=== PATIENT | male | born 1960 | race Caucasian/White ===

== ENCOUNTER 2022-06-13 06:43 | Day surgery (SDC) | payer OTHER, BC, SELFPAY ==
[2022-04-26 13:32] VITALS: BMI 28.1
[2022-06-01 10:00] VITALS: BMI 28.8
--- NOTE | 2022-06-13 07:07 | P.PNAN_ITS ---
Anes - Initial Pre Proc Eval Procedure: Operation Date: 06/13/22 10:00 Proposed Procedures p Screening Colonoscopy - Sky Giles MD Date/Time: 06/13/22 07:07 Surgeon: Sky Giles MD Pre Op Diagnosis: neoplasia screening Patient Data Age: 61 Gender: M Height: 1.73 m Weight: 86 kg Allergies Allergy/AdvReac Type Severity Reaction Status Date / Time vancomycin Allergy Mild Itching/HIV Verified 06/13/22 08:55 ES/REDNESS adhesive Allergy Unknown ITCHING, Verified 06/13/22 08:55 REDNESS FROM TAPE Home Medications Medication Instructions Recorded Confirmed Type atorvastatin 10 mg tablet 10 mg PO DAILY 03/11/20 06/01/22 History sodium,potassium,mag sulfates 17.5 See Rx Instructions PO .COMPLEX 04/26/22 Rx gram-3.13 gram-1.6 gram oral soln #354 mL (Suprep Bowel Prep Kit) pantoprazole 40 mg tablet,delayed 40 mg PO QAM 06/01/22 06/01/22 History release Patient hx anesthesia problems: none Family hx anesthesia problems: none Results Review: All pre-operative results and documents have been reviewed as part of the pre- operative evaluation. [facility] Past Medical History Medical History (Updated 06/13/22 @ 09:25 by Sky Giles MD) GERD (gastroesophageal reflux disease) Surgical History Surgical History (Updated 06/13/22 @ 07:08 by Michael Reyes DO) Hx of fusion of cervical spine x2 Social History Social History (Updated 06/13/22 @ 08:55 by Michael Reyes DO) Smoking status: Former smoker Smoking end date: 05/15/95 Alcohol intake: current Substance use: never Substance use type: does not use Living arrangements: with family Spiritual care concerns: No Anes - Eval Final PreProcedure Day of Procedure 06/13/22 07:07 Patient weight: overweight Heart: regular rate and rhythm Lungs: clear to auscultation Airway: Mallampati scale class II Neurological: alert and oriented Last oral intake: >/= 8 hours ASA classification: II Emergent: no Anesthetic plan: proceed Anesthesia type and monitoring: general GIVS and standard monitoring Results Review: All pre-operative results and documents have been reviewed as part of the pre- operative evaluation. Informed Consent: The patient's anesthetic plan and its attendant risks and benefits were discussed with the patient/family/POA. Questions were solicited and answers pr ovided to the satisfaction of the patient/family/POA.
[2022-06-13 08:50] VITALS: BP 122/83; PULSE 80; RESP 20; TEMP 36.5; O2SAT 98
[2022-06-13] MEDS: LACTATED RINGERS 1,000 ML 150 ML IV CONT (09:10)
--- NOTE | 2022-06-13 09:23 | PM.HPGS ---
History of Present Illness History of Present Illness Consent: Risks, benefits, and alternatives have been discussed and questions answered. Patient agrees to proceed with procedure. Chief complaint: neoplasia screening Narrative: Reinaldo Kasper is a 61 year old male Presents for screening colonoscopy. Patient's current weight appetite and bowel movements are normal. Patient denies abdominal pain. He has had no bleeding. Family history is noncontributory. Previous colonoscopy 2014 revealed benign lymphoid aggravate histology on the polyp that was excised. Patient returns today for screening colonoscopy. Family history noncontributory Review of Systems Review of Systems: review of systems noncontributory. [facility] Past Medical History Medical History (Updated 06/13/22 @ 09:25 by Sky Giles MD) GERD (gastroesophageal reflux disease) Surgical History Surgical History (Updated 06/13/22 @ 07:08 by Michael Reyes DO) Hx of fusion of cervical spine x2 Social History Social History (Updated 06/13/22 @ 08:55 by Michael Reyes DO) Smoking status: Former smoker Smoking end date: 05/15/95 Alcohol intake: current Substance use: never Substance use type: does not use Living arrangements: with family Spiritual care concerns: No Meds Home Medications and Allergies Home Medications Medication Instructions Recorded Confirmed Type atorvastatin 10 mg tablet 10 mg PO DAILY 03/11/20 06/13/22 History sodium,potassium,mag sulfates 17.5 See Rx Instructions PO .COMPLEX 04/26/22 06/13/22 Rx gram-3.13 gram-1.6 gram oral soln #354 mL (Suprep Bowel Prep Kit) pantoprazole 40 mg tablet,delayed 40 mg PO QAM 06/01/22 06/13/22 History release Allergies Allergy/AdvReac Type Severity Reaction Status Date / Time vancomycin Allergy Mild Itching/HIV Verified 06/13/22 08:55 ES/REDNESS adhesive Allergy Unknown ITCHING, Verified 06/13/22 08:55 REDNESS FROM TAPE Vital Signs Vital Signs - 24 hr 06/13/22 08:50 Temperature 97.7 F Pulse Rate 80 Respiratory Rate 20 Blood Pressure 122/83 Pulse Oximetry 98 Oxygen Delivery Room Air Exam Narrative: Physical exam reveals patient to be alert. Vital signs stable. HEENT exam is unremarkable. Patient is anicteric. Lungs are clear to auscultation and percussion. Heart is without murmur or extra sounds. Abdomen bowel sounds are present soft nontender with no organomegaly. Digital external rectal exam is normal. Assessment and Plan Assessment and plan (1) Encounter for screening colonoscopy: Code(s): Z12.11 - Encounter for screening for malignant neoplasm of colon Status: Acute Assessment and Plan: Patient presents for screening colonoscopy. Patient's current weight appetite and bowel movements are normal. Patient appears to be at average risk for colon polyps.
[2022-06-13 10:16] VITALS: BP 112/83; PULSE 71; RESP 16; O2SAT 100
[2022-06-13 10:26] VITALS: BP 99/65; PULSE 66; RESP 16; O2SAT 100
[2022-06-13 10:36] VITALS: BP 117/81; PULSE 70; RESP 18; O2SAT 100
--- NOTE | 2022-06-13 10:36 | WPDANESPN ---
Anes - Prog Note Post-Op Date/Time: 06/13/22 10:36 Cardiovascular status: normal Respiratory status: normal Airway patency: baseline Mental status: baseline Post-Op hydration status: normal Vital Signs: Last Vital Signs Temp 36.5 C 06/13/22 08:50 Pulse 66 06/13/22 10:26 Resp 16 06/13/22 10:26 BP 99/65 L 06/13/22 10:26 Pulse Ox 100 06/13/22 10:26 O2 Del Method Room Air 06/13/22 10:26 Pain Score (VAS): 0 I/O: Intake & Output 06/12/22 06/13/22 06/13/22 23:59 07:59 15:59 Intake Total 200 Balance 200 Post-procedural complaints: none Patient Feedback: Patient satisfied with anesthetic care. Other Findings: Patient vital signs back to baseline. Patient denies nausea and vomiting. Patient's pain under control. Patient OK for discharge.
== END 2022-06-13 10:55 | disposition home or self-care (01) ==
PROVIDERS: PCP Family Medicine Sports Medicine; Visit Provider Internal Medicine Gastroenterology
PROC: 0DJD8ZZ Inspection of Lower Intestinal Tract, Via Natural or Artificial Opening Endoscopic (ICD-10-PCS; CPT 45378; principal; 2022-06-13 10:00)
DX: Z12.11 Encounter for screening for malignant neoplasm of colon (principal)
CPT/HCPCS: 45378

== ENCOUNTER 2022-06-13 08:00 | Outpatient (NON) | payer OTHER, BC, SELFPAY | END 2022-06-13 08:01 | disposition home or self-care (01) | LOC: ANHLAB 06-14 08:02 | PROVIDERS: PCP Family Medicine Sports Medicine; Visit Provider Internal Medicine Gastroenterology | DX: Z12.11 Encounter for screening for malignant neoplasm of colon (principal) | CPT/HCPCS: 88305 ==

== ENCOUNTER → 2023-05-06 10:00 | Outpatient (CLI) | payer BC, SELFPAY ==
--- NOTE | ~2023-05-06 | MR_ITS ---
EXAMINATION: MR knee RT wo con DATE: 05/06/2023 10:38 INDICATION: Medial right knee pain and swelling. TECHNIQUE: Magnetic resonance imaging (MRI) of the right knee was performed without intravenous contr ast. Sequences included axial PD-weighted FS FSE, coronal PD-weighted FSE and PD-weighted FS FSE, sag ittal PD-weighted FSE, and sagittal T2-weighted FS FSE. COMPARISON: None. FINDINGS: Medial compartment: There is an undersurface horizontal tear of body and posterior horn of medial meniscus. There is shal low partial-thickness cartilage loss of tibial condyle and femoral condyle. Lateral compartment: Lateral meniscus is normal. There is cartilage surface irregularity of femoral condyle and tibial con dyle. Patellofemoral compartment: There is shallow partial-thickness cartilage loss of patella and trochlea. Ligaments and tendons: The anterior and posterior cruciate ligaments are normal. There are changes of prior sprains of media l collateral ligament and fibular collateral ligament characterized by increased signal intensity pro ximally. There is mild patellar tendinopathy. Fluid: There is a small knee joint effusion. There is trace fluid in a Wagner's cyst. There is mild prepatell ar and superficial infrapatellar bursitis. IMPRESSION: 1. Mild tricompartmental chondrosis. 2. Tear of medial meniscus. 3. Small knee joint effusion. Reviewed, dictated and finalized at location E. [facility]
== END ==
PROVIDERS: PCP Orthopaedic Surgery; Visit Provider Orthopaedic Surgery
DX: M25.561 Pain in right knee (principal); M22.2X1 Patellofemoral disorders, right knee; S83.241A Other tear of medial meniscus, current injury, right knee, initial encounter; M25.461 Effusion, right knee
CPT/HCPCS: 73721

== ENCOUNTER 2024-05-06 09:18 | Outpatient (CLI) | payer BC, SELFPAY ==
--- NOTE | 2024-05-06 09:30 | ECG_ITS ---
Test Date: 2024-05-06 09:39:13 Measurements Intervals [place] Rate: 64 P: 62 ND: 179 QRS: 26 QRSD: 91 T: 38 QT: 353 QTc: 367 Interpretive Statements SINUS RHYTHM No previous ECG available for comparison Electronically Signed On 05-07-2024 14:52:43 [employer] by Handy Montiel M.D.
== END 2024-05-06 09:19 | disposition home or self-care (01) ==
LOC: ANHSURGERY 09:24
PROVIDERS: PCP Family Medicine; Visit Provider Orthopaedic Surgery
DX: Z01.818 Encounter for other preprocedural examination (principal); S83.206A Unspecified tear of unspecified meniscus, current injury, right knee, initial encounter; E78.5 Hyperlipidemia, unspecified; X58.XXXA Exposure to other specified factors, initial encounter
CPT/HCPCS: 93005

== ENCOUNTER 2024-05-13 00:19 | Day surgery (SDC) | payer BC, SELFPAY ==
[2024-05-01 15:40] VITALS: BMI 26.9
--- NOTE | 2024-05-01 15:41 | PC.NURSE ---
Report to the Outpatient Waiting Room, entrance under the green pavilion located off [facility], at time _0600_ on date _[id number]_. Planned Procedure Time: _0730_.? Time changes happen often and if your time is changed the preop area will call you the afternoon before. - You and your visitor will be asked to self-screen and do not enter if you have any COVID symptoms. Please call surgeon if you need to reschedule. - A mask is optional within the hospital at this time. Patients may have clear liquids (water, carbonated beverages, clear teas, apple juice) until 3 hours prior to surgery with a maximum of 20 ounces. - No food from midnight until time of surgery and no smoking. This includes no chewing gum, candy or mints. Take only the following medications with a SIP of water on the morning of surgery: ___None DO NOT STOP ANY OF YOUR OTHER PRESCRIPTION MEDICATIONS PRIOR TO SURGERY EXCEPT THE FOLLOWING Medications to discontinue per physician ____None Please no make-up, nail ukrainian, hairspray, perfume, deodorant, or body powder the day of surgery.? No jewelry (including any body piercings) or valuables the day of surgery, leave them at home.? Please take a shower or bath the night before, or the morning of, surgery with an antibacterial soap.? Wear comfortable, loose fitting clothing.? - Jewelry must be removed prior to entering the operating room.? Rings and piercings that are not removed may be cut off. - The hospital will not accept responsibility for valuables.? - Please leave all valuables, including medications, at home the day of surgery. If you are going home after surgery, a licensed chair car driver must drive you home.? - NO public transportation without another adult if you receive anesthesia. - We recommend that an adult stay with you for 24 hours following discharge. - We also recommend that you do not drive, make important decision, drink alcoholic beverages, or take any drugs that were not prescribed by your health care provider for at least 24 hours after your discharge time. Follow any additional instructions given to you from your surgeon. Telephone instructions given to __Eduardo__and asked if any additional questions and then verbalized understanding. Patient advised to call surgeon office or pre surgery nurse liaison [phone] if any additional questions.
--- NOTE | 2024-05-10 11:22 | P.HP_ITS ---
H&P: HPI History of Present Illness Date/Time: 05/10/24 11:22 Chief Complaint: Medial meniscus tear right knee Narrative: 63-year-old male presents today for arthroscopy of his right knee with partial medial meniscectomy proceed as indicated. Patient is having symptoms for about 1 year. He was diagnosed with a tear of the posterior horn the medial meniscus last April on MRI scan. He has been treating this nonsurgically over the course the last year. He had a cortisone injection in May of 2023 which helped only for couple days. He has been taking naproxen [id number] which is helped a little bit with his symptoms. He does continue to have symptoms on a daily basis. Pain is directly at the medial joint line where he feels it. He has pain with stairs or squatting. He is having no catching or locking type symptoms in the knee. Review of Systems Review of Systems: All systems reviewed & are unremarkable except as noted in HPI and below PMFSH Past Medical History Medical History GERD (gastroesophageal reflux disease) Surgical History Surgical History Hx of fusion of cervical spine x2 Social History Social History (Updated 01/26/24 @ 08:11 by Debra García [facility]) Smoking packs per day: 1.75 Smoking cigarettes per day: 35.0 Years smoked: 15 Smoking pack-years: 26.25 Smoking status: Former smoker Second hand tobacco smoke exposure: Yes Smoking end date: 05/01/96 Alcohol intake: current Substance use: never Substance use type: does not use Do You Feel Safe in your Home?: Yes Lack of Transportation: No Lack of Food: Never True Current Housing: I Have Housing Concerned About Future Housing: No Difficulty Paying Gas/Electric Bills: No Difficulty Paying for Meds: No Currently Unemployed: No Education: Associate Degree Difficulty w/ Childcare or Family Care: No Living arrangements: with family Occupation/Education: retired 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 BMI is 27.0. I cautioned her right knee is from 0-140 degrees. He has pain at the medial joint line at full flexion. Radha's testing causes pain in the same location. He has moderately severe tenderness along the posterior medial joint line. There is no effusion in the knee. Hip range of motion is full without discomfort. He has no swelling in either lower extremity. 2+ dorsalis pedis pulse in the foot. Resp: Auscultation: clear to auscultation bilaterally Cardio: Rate: regular rate Rhythm: regular rhythm Assessment and Plan Assessment and plan (1) Tear of medial meniscus of right knee: Code(s): S83.241A - Other tear of medial meniscus, current injury, right knee, initial encounter Status: Acute Assessment and Plan: 63-year-old male who has a tear of the medial meniscus. He has been having symptoms for last year without significant improvement. He has had a cortisone injection as well as anti-inflammatories. He has minimal arthritic changes in the knee. Arthroscopy of the knee was offered to the patient he would like to proceed with it. He did have arthroscopy done to the left knee approximately 4 years ago and has done well for him. Surgical procedures well as the risks complications were discussed in detail questions were answered and we will proceed. Patient will see his primary care doctor for pre-surgical clearance. He will avoid his naproxen and any other aspirin ibuprofen products 1 week prior to surgery.
[2024-05-13] VITALS (10 sets, daily range): BP systolic 94–121; BP diastolic 49–88; PULSE 53–83; RESP 10–16; TEMP 36.4; O2SAT 95–100
[2024-05-13] MEDS: LACTATED RINGERS 1,000 ML 30 ML IV CONT (06:40)
[2024-05-13] MEDS: ACETAMINOPHEN 500 MG TABLET 1000 MG PO (06:40)
[2024-05-13] MEDS: KETOROLAC 15 MG/ML VIAL (*BKC) IV PUSH (06:40)
--- NOTE | 2024-05-13 07:17 | WPDHPUPDATE1 ---
History and Physical Update Update Date/Time: 05/13/24 07:17 History and Physical has been reviewed, including an updated exam of the patient. There are NO changes in the patient's condition. Risks, benefits, and alternatives have been discussed and questions answered. Patient agrees to proceed with procedure.
--- NOTE | 2024-05-13 07:22 | WPDANESEPPF ---
Anes - Initial Pre Proc Eval Procedure: Operation Date: 05/13/24 07:30 Proposed Procedures p Right Knee Arthroscopy, Partial Medial Meniscectomy, Proceed As Indicated - Lenny Li MD Date/Time: 05/13/24 07:22 Surgeon: Lenny Li MD Pre Op Diagnosis: right knee medial meniscus tear Patient Data Age: 63 Gender: M Height: 1.73 m Weight: 80.5 kg Last Vital Signs Temp 97.5 F L 05/13/24 06:40 Pulse 53 L 05/13/24 06:40 Resp 14 05/13/24 06:40 BP 114/88 05/13/24 06:40 Pulse Ox 96 05/13/24 06:40 O2 Del Method Room Air 05/13/24 06:40 Allergies Allergy/AdvReac Type Severity Reaction Status Date / Time vancomycin Allergy Mild Itching/HIV Verified 05/13/24 07:00 ES/REDNESS adhesive Allergy Unknown ITCHING, Verified 05/13/24 07:00 REDNESS FROM TAPE Home Medications ?Medication ?Instructions ?Recorded ?Confirmed ?Type atorvastatin 10 mg tablet 10 mg PO DAILY 03/11/20 05/01/24 History pantoprazole 40 mg tablet,delayed 40 mg PO QAM 06/01/22 05/01/24 History release Patient hx anesthesia problems: none Family hx anesthesia problems: none Results Review: All pre-operative results and documents have been reviewed as part of the pre-operative evaluation. [facility] Past Medical History Medical History GERD (gastroesophageal reflux disease) Surgical History Surgical History Hx of fusion of cervical spine x2 Social History Social History (Updated 01/26/24 @ 08:11 by Debra García [facility]) Smoking packs per day: 1.75 Smoking cigarettes per day: 35.0 Years smoked: 15 Smoking pack-years: 26.25 Smoking status: Former smoker Second hand tobacco smoke exposure: Yes Smoking end date: 05/01/96 Alcohol intake: current Substance use: never Substance use type: does not use Do You Feel Safe in your Home?: Yes Lack of Transportation: No Lack of Food: Never True Current Housing: I Have Housing Concerned About Future Housing: No Difficulty Paying Gas/Electric Bills: No Difficulty Paying for Meds: No Currently Unemployed: No Education: Associate Degree Difficulty w/ Childcare or Family Care: No Living arrangements: with family Occupation/Education: retired 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 Informed Consent: The patient's anesthetic plan and its attendant risks and benefits were discussed with the patient/family/POA. Questions were solicited and answers provided to the satisfaction of the patient/family/POA.
[2024-05-13] MEDS: ceFAZolin 2 GM/D5W 50 ML 2 GM/50 ML BAG IVPB (07:30)
[2024-05-13] MEDS: LIDO 1%/EPINEPHRINE 1:100,000 20 ML VIAL 50 ML INFILTRATE (08:17)
--- NOTE | 2024-05-13 08:43 | W.PM.PROC2 ---
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 He received 2 g of Ancef preoperatively. The right knee was prepped draped usual fashion. Standard arthroscopic portals were placed and the medial compartment was inspected 1st. There was rather extensive chondromalacia in the central aspect of the medial femoral condyle which was not evident on MRI scan from 1 year ago. There is central moderate chondromalacia in the medial tibial plateau as well. The medial meniscus was intact in its superior surface still. The undersurface showed maceration and tearing with small flaps inverted under the meniscal capsular junction. Using small motorized shaver the undersurface of the meniscus was debrided removing the flipped flaps and smoothing the undersurface. A few mm of the superior surface was resected at the medial aspect of the posterior horn and posterior aspect the midbody where the meniscus was thin and a even contour of the superior leaflet is superior meniscus was left behind. I did not feel that extensive resection would be appropriate and that it might accelerate progressive degeneration the medial compartment given the chondromalacia we saw. We placed the arthroscope in the anteromedial portal and did a little bit of additional work on the undersurface the midbody of the lateral meniscus instrumenting from the anterolateral portal. A very conservative chondroplasty was performed and the delaminating portions of the articular cartilage of the medial femoral condyle. ACL looked normal. The lateral compartment showed chondromalacia in the anterior tibial plateau. The lateral meniscus was intact. A loose piece of articular cartilage was visualized resting on the surface posterior horn of the lateral meniscus and arthroscopic shaver was introduced and this was easily removed. I suspected this came from either the medial femoral condyle or as we subsequently noted the significant chondromalacia in the central trochlea. The patellofemoral joint was inspected. There was focal chondromalacia moderate grade but a small area in the center of the apex of the patella a more extensive area of moderate to high-grade chondromalacia in the central inferior trochlear groove and there were some loose flaps that were conservatively debrided with a motorized shaver. This completed the procedure there were no loose bodies noted otherwise. Portals were closed with 5 0 nylon suture. The knee joint had been injected before insertion of portal with 10 cc 1% lidocaine with epinephrine for intraoperative hemostasis and anesthesia on the synovium and the soft tissues around the portals additionally injected with 8 cc 1% lidocaine. Soft bulky dressing was applied the patient transferred to postop recovery in a stable condition. [facility] [place] Billing Surgery - Charge Forward: Surgery Billing (Arthroscopic partial medial meniscectomy right knee.)
[2024-05-13] MEDS: oxyCODONE HCL (*CRX) 5 MG TAB IR PO (10:00)
== END 2024-05-13 10:50 | disposition home or self-care (01) ==
PROVIDERS: PCP Family Medicine; Visit Provider Orthopaedic Surgery
PROC: (CPT 29870; principal; 2024-05-13 07:30)
DX: S83.241A Other tear of medial meniscus, current injury, right knee, initial encounter (principal); M94.261 Chondromalacia, right knee; K21.9 Gastro-esophageal reflux disease without esophagitis; X58.XXXA Exposure to other specified factors, initial encounter; E66.9 Obesity, unspecified; Z68.27 Body mass index [BMI] 27.0-27.9, adult; Z98.890 Other specified postprocedural states; Z98.1 Arthrodesis status; Z87.891 Personal history of nicotine dependence
CPT/HCPCS: 29881; A9270; J0690; J1100; J1885; J2003; J2004; J2250; J2405; J2704; J3010; J7120